=== PATIENT | male | born 2000 | race Caucasian/White ===

== ENCOUNTER → 2020-05-26 | Outpatient (CLI) | payer OTHER ==
[~2020-05-26] MED LIST: AMOXICILLI400 MG/51 PO; NO HOME MEDICATIONS; PHENERGAN W/CO120 ML PO; PREDNISONE20 MG PO; PRELONE15 MG/5 ML PO; ZITHROMAX200 MG/5 M PO
== END ==
LOC: COL.RAD 08:51
DX: M79.671 Pain in right foot (principal)
CPT/HCPCS: J3301; Q9967